=== PATIENT | female | born 1985 | race Caucasian/White ===

== ENCOUNTER 2017-01-03 09:55 | Emergency (ER) | payer BC, OTHER ==
--- NOTE | 2017-01-03 10:51 | RAD ---
HISTORY: Back pain COMPARISONS: None VIEWS: 5 , Frontal, lateral, coned-down lateral sacral, and bilateral oblique views of the lumbar spine. FINDINGS: ALIGNMENT: The alignment is normal. VERTEBRAL BODIES: There is multilevel anterolateral marginal osteophyte formation. The vertebral bodies are preserved in height. JOINTS: There is facet hypertrophic change most pronounced at L4-L5 and L5-S1 INTERVERTEBRAL DISCS: There is diffuse loss of intervertebral disc height. SOFT TISSUE: Unremarkable. OTHER: The pelvis is unremarkable. The lung bases are clear. IMPRESSION: DEGENERATIVE DISC DISEASE AND OSTEOARTHRITIS, MOST PRONOUNCED AT L4-L5 AND L5-S1
--- NOTE | 2017-01-03 10:52 | ED ---
Back Pain - HPI Summary HPI Summary: 31 yr old female with the complaint of pain in the right buttock area going down right leg with some tingling in her right great toe. Onset of symptoms when she brought something from overhead at work down to waist level and she twisted and turned to the side. Pain is 4/10. She denies bowel or bladder symptoms. No other complaints. - History of Current Complaint Chief Complaint: UCLowerExtremity Stated Complaint: RIGHT HIP TO FOOT INJURY WC Time Seen by Provider: 01/03/17 10:19 Hx Last Menstrual Period: 01/03/27 - Allergies/Home Medications Allergies/Adverse Reactions: Allergies Allergy/AdvReac Type Severity Reaction Status Date / Time No Known Allergies Allergy Verified 01/03/17 10:13 Home Medications: Home Medications Atorvastatin* [Lipitor*] 20 mg PO DAILY 01/03/17 [History Confirmed 01/03/17] Lisinopril/HCTZ 1012.5(NF) [Zestoretic 10.5(NF)] 1 tab PO DAILY 01/03/17 [ History Confirmed 01/03/17] PMH/Surg Hx/FS Hx/Imm Hx Cardiovascular History: Reports: Hx Hypertension Infectious Disease History: No Infectious Disease History: Denies: Hx Clostridium Difficile, Hx Hepatitis, Hx Human Immunodeficiency Virus (HIV), Hx of Known/Suspected MRSA, Hx Shingles, Hx Tuberculosis, Hx Known/ Suspected VRE, Hx Known/Suspected VRSA, History Other Infectious Disease, Traveled Outside the in Last 30 Days - Social History Alcohol Use: None Substance Use Type: Reports: None Smoking Status (MU): Current Every Day Smoker Amount Used/How Often: 2 packs per week Length of Time of Smoking/Using Tobacco: ~ 10 years Review of Systems Constitutional: Negative Positive: Other - pain right buttock, right leg All Other Systems Reviewed And Are Negative: Yes Physical Exam Triage Information Reviewed: Yes Vital Signs On Initial Exam: Initial Vitals Temp Pulse Resp BP Pulse Ox 98.7 F 100 16 182/98 98 01/03/17 10:01/03/17 10:01/03/17 10:01/03/17 10:01/03/17 10:06 Vital Signs Reviewed: Yes Appearance: Positive: Well-Appearing, No Pain Distress Skin: Positive: Warm Head/Face: Positive: Normal Head/Face Inspection Eyes: Positive: EOMI Neck: Positive: Supple, Nontender Respiratory/Lung Sounds: Positive: Clear to Auscultation, Breath Sounds Present Cardiovascular: Positive: Normal, RRR. Negative: Murmur Abdomen Description: Positive: Nontender Musculoskeletal: Positive: Normal, Strength/ROM Intact Neurological: Positive: Normal, Sensory/Motor Intact, Alert, Oriented to Person Place, Time, CN Intact II-III, Normal Gait Diagnostics - Vital Signs Vital Signs Temp Pulse Resp BP Pulse Ox 01/03/17 10:06 98.7 F 100 16 182/98 98 - Laboratory Lab Statement: Any lab studies that have been ordered have been reviewed, and results considered in the medical decision making process. - Radiology lumbar Xray Interpretation: Positive (See Comments) - [facility] Radiology Interpretation Completed By: Radiologist Back Pain Course/Dx - Course Course Of Treatment: 31 yr old with radicular symptoms right leg. Will rx with motrin, and DC to follow up with Ortho. She just started her BP med yesterday. She will follow up with PMD - Diagnoses Provider Diagnoses: Lumbar radiculopathy, acute, Hypertension Discharge - Discharge Plan Condition: Good Disposition: HOME Prescriptions: Ibuprofen TAB* [Motrin TAB* 600 MG] 600 mg PO Q8H PRN #20 tab PRN Reason: Pain Scale 1-5 Patient Education Materials: Lumbar Radiculopathy (ED), Lower Back Exercises ( ED), Hypertension (ED) Referrals: Franny Samuel MD [Primary Care Provider] - José Miguel Lima MD [Medical Doctor] - 2 Days
[2017-01-03 11:19] VITALS: BP 184/121
== END 2017-01-03 11:30 | disposition home or self-care (01) ==
LOC: UCCORT 09:55
DX: M54.16 Radiculopathy, lumbar region (principal); I10 Essential (primary) hypertension; Z72.0 Tobacco use
CPT/HCPCS: 72110; 99212; G0463

== ENCOUNTER 2021-07-01 16:47 | Observation (INO) ==
[2021-07-01] MEDS ORDERED: NS 0.9% 1000 ml BAG 1,000 ML IV ONE (17:01)
[2021-07-01 17:23] LABS: ABS Basophils 0.1 10^3/ul (0-0.2); ABS Eosinophils 0.1 10^3/ul (0-0.6); ABS Lymphocytes 2.1 10^3/ul (1.0-4.8); ABS Monocytes 0.6 10^3/ul (0-0.8); ABS Neutrophils 7.1 10^3/ul (1.5-7.7); Eosinophil % 1.3 %; Hematocrit 46 % (35-47); Hemoglobin 15.2 g/dL (12.0-16.0); Lymphocyte % 20.8 %; Mean Corpuscular HGB Conc 33 g/dL (31-36); Mean Corpuscular Hemoglobin 27 pg (27-31); Mean Corpuscular Volume 80 fL (80-97); Mean Platelet Volume 9.1 fL (7.4-10.4); Platelet Count 263 10^3/uL (150-450); Red Blood Count 5.72 10^6 /uL (3.70-4.87); Red Cell Distribution Width 15 % (10-15)
[2021-07-01] MEDS ORDERED: Iodixanol (CONTRAST) 320 MG/ML 100 ML SDV IV ONE (17:29)
[2021-07-01 17:42] LABS: ALT 17 U/L (7-52); AST 13 U/L (13-39); Albumin 4.5 g/dL (3.2-5.2); Albumin/Globulin Ratio 1.2 (1-3); Alkaline Phosphatase 93 U/L (35-149); Anion Gap 10 mmol/L (2-11); Blood Urea Nitrogen 17 mg/dL (6-24); CO2 Carbon Dioxide 23 mmol/L (22-32); Calcium 10.1 mg/dL (8.6-10.3); Chloride 103 mmol/L (101-111); Cholesterol 281 mg/dL; Globulin 3.9 g/dL (2-4); Glucose 137 mg/dL (70-100); HDL Cholesterol 39.8 mg/dL; LDL Cholesterol 176 mg/dL; Sodium 136 mmol/L (135-145); Total Protein 8.4 g/dL (6.4-8.9); Triglycerides 325 mg/dL; eGFR CKD-EPI 89.2 (>60)
[2021-07-01] MEDS ORDERED: Labetalol IV 5 MG/ML 20 ml VIAL IV PUSH ONE (17:49)
[2021-07-01 18:17] LABS: Activated Partial Thrombo Time 31.7 seconds (26.0-38.0); INR 1.16 (0.86-1.15)
[2021-07-01 19:12] LABS: Alcohol, S < 13 mg/dL (<13)
[2021-07-01 19:35] LABS: Urine Benzodiazepine Screen None Detected (None Detect); Urine Cannabinoids Screen None Detected (None Detect); Urine Opiates Screen None Detected (None Detect)
[2021-07-01] MEDS ORDERED: Dextrose 50% Syringe 50 ml 25 GM/50 ML SYRINGE IV PUSH PRN (21:19)
[2021-07-01] MEDS ORDERED: Gadoteridol (CONTRAST) 279.3 MG/ML 10 ML IV ONE (21:47)
[2021-07-02] MEDS ORDERED: Ondansetron 4 mg VIAL 2 MG/ML 2 ml VIAL IV PRN (06:12)
[2021-07-02] MEDS: Aspirin EC 81 mg TAB.EC (enteric coated) PO SCH (09:19)
[2021-07-02] MEDS: Nicotine PATCH 14 MG/24 HR PATCH TRANSDERM SCH (13:45)
[2021-07-02] MEDS ORDERED: Insulin GLARGINE 100 un/ml 10 ml VIAL SUBCUT SCH (21:00)
[2021-07-03 08:28] VITALS: BP 148/87
[2021-07-03] MEDS: Aspirin EC 81 mg TAB.EC (enteric coated) PO SCH (08:41)
[2021-07-03] MEDS: Nicotine PATCH 14 MG/24 HR PATCH TRANSDERM SCH (08:42)
== END 2021-07-03 11:20 | disposition home or self-care (01) ==
LOC: ED 16:47 → EDHOLD 16:47 → SUATTDRO 21:14 → EDHOLD 07-02 08:03 → MEDTELE 07-02 10:28
PROVIDERS: ADMIT Hospitalist; ATTEND Student in an Organized Health Care Education/Training Program

== ENCOUNTER 2024-01-30 08:33 | Observation (INO) ==
[~2024-01-30 08:33] MED LIST: Dexamethasone IV 4 MG/ML VIAL 1 ml VIAL ONE; Lidocaine 2% PF 5 ML VIAL ONE; Midazolam 2 mg/2 ml VIAL 1 mg/ml 2 ml VIAL (2 mg) ONE; Naloxone 0.4 mg VIAL 0.4 mg/ml 1 ml VIAL IV PRN; Ondansetron 4 mg VIAL 2 MG/ML 2 ml VIAL IV PRN; Ondansetron 4 mg VIAL 2 MG/ML 2 ml VIAL ONE; Propofol 10 MG/ML 20 ML BTL ONE; Rocuronium 50 mg VIAL 10 mg/ml 5 ml VIAL (50 mg) ONE; fentaNYL 100 mcg/2 ml 50 MCG/ML VIAL IV PRN; fentaNYL 250 mcg/5 ml 50 MCG/ML 5 ml VIAL (250 MCG) ONE
[2024-01-30] MEDS ORDERED: Chlorhexidine MOUTHWASH 0.12% 15 ML UDC ONE (09:00)
[2024-01-30] MEDS: Buffered Lidocaine 1% SYRIN 1 ml INTRADERM ONE (09:15)
[2024-01-30] MEDS ORDERED: ceFAZolin *3* GM in NS PREMIX 3 GM/100 ML BAG IV ONE (09:20)
[2024-01-30] MEDS: Lactated Ringers 1000 ml BAG 1,000 ML IV SCH ×2 (09:46→17:14)
[2024-01-30] MEDS ORDERED: Thrombin 5,000 UNITS 1 APPLIC KIT - topical use - TOPICAL ONE (11:45)
[2024-01-30] MEDS ORDERED: Lidocaine 1% w EPI 1:100,000 MDV 20 ML VIAL ONE (11:45)
[2024-01-30] MEDS ORDERED: ceFAZolin VIAL VIAL ONE (11:46)
[2024-01-30] MEDS ORDERED: Rocuronium 50 mg VIAL 10 mg/ml 5 ml VIAL (50 mg) ONE (12:59)
[2024-01-30] MEDS ORDERED: HYDROmorphone 0.5 MG/0.5 ML SYRINGE ONE (14:04)
[2024-01-30] MEDS ORDERED: fentaNYL 100 mcg/2 ml 50 MCG/ML VIAL ONE (14:05)
[2024-01-30] MEDS ORDERED: Phenol 1.4% Throat Spray BTL MT PRN (14:37)
[2024-01-30] MEDS ORDERED: Benzocaine/Menthol LOZ MT PRN (14:37)
[2024-01-30] MEDS ORDERED: Dextran 70/Hypromellose Tears Eye Drops 15 ml BTL (for Artificials Tears) BOTH EYES PRN (14:37)
[2024-01-30] MEDS ORDERED: Calcium Carb (TUMS) 500 mg CHEW TAB PO PRN (14:37)
[2024-01-30] MEDS ORDERED: Senna TAB 8.6 mg TAB PO PRN (14:37)
[2024-01-30] MEDS ORDERED: Morphine 2 MG/ML SYRINGE IV PRN (14:37)
[2024-01-30] MEDS ORDERED: Ondansetron 4 mg VIAL 2 MG/ML 2 ml VIAL IV PRN (14:37)
[2024-01-30 15:16] LABS: Rapid COVID-19 Molecular Undetected (Undetected)
[2024-01-30] MEDS: Insulin GLARGINE 100 un/ml 10 ml VIAL SUBCUT SCH (21:42)
[2024-01-31] MEDS: Aspirin EC 81 mg TAB.EC (enteric coated) PO SCH (08:45)
[2024-01-31] MEDS: Nicotine PATCH 14 MG/24 HR PATCH TRANSDERM SCH (08:45)
[2024-01-31 10:55] VITALS: BP 119/66
== END 2024-01-31 13:15 | disposition home or self-care (01) ==
LOC: SSU 08:33 → OR 08:33
PROVIDERS: ADMIT Neurological Surgery; ATTEND Neurological Surgery